=== PATIENT | male | born 1960 | race Caucasian/White ===

== ENCOUNTER 2017-01-13 13:17 | Emergency (ER) | payer SELFPAY ==
[~2017-01-13] VITALS: Ht 177.8 cm; Wt 120.0 kg
[2017-01-13 13:19] VITALS: BP 150/91; PULSE 64; RESP 20; TEMP 98; O2SAT 97
--- NOTE | 2017-01-13 15:19 | PD ---
HPI Chief Complaint: Medical Clearance Time Seen by Provider: 15:19 Travel History International Travel<30 days: No Contact w/Intl Traveler<30days: No Traveled to known affect area: No History of Present Illness HPI 56-year-old male with a history of sleep apnea presents to the emergency department for evaluation of feeling foggy with jaw pain. The patient states that since he woke up this morning he has been feeling "foggy." He describes it as feeling as though he just woke up. States that this is persisted throughout the day today. States that about an hour ago he also developed jaw pain that is aching in nature. He states he does have a mild headache as well. States that the last 2 days he has had a few episodes of nausea and vomiting but has had no nausea or vomiting today. He denies any chest pain, shortness of breath, difficulty breathing, numbness or tingling, weakness, vision changes , abdominal pain, fever, chills, cough or cold symptoms. He denies any history of high blood pressure, diabetes, heart disease or VT. States that he thinks he has high cholesterol but has never been diagnosed. He has been smoking cigarettes for 40+ years. Denies alcohol use. He does not have a PCP at this time. No other complaints. PFSH Past Medical History Blood Disorders: Yes (HAS ABNORMAL WBC,S / NEEDS TO SEE ONCOLOGIST) Depression: Yes High Cholesterol: Yes (SUPPOSED TO BE ON MEDICATION) Diminished Hearing: No Implanted Vascular Access Dvce: No Integumentary: Yes (HAS HAD BOILS IN THE PAST) Past Surgical History Abdominal Surgery: No Cardiac Surgery: No Ear Surgery: No Endocrine Surgery: No Eye Surgery: No Genitourinary Surgery: No Neurologic Surgery: No Oral Surgery: Yes (TONSILLECTOMY AT 12) Thoracic Surgery: No Tonsillectomy: Yes Other Surgery: Yes Social History Alcohol Use: No Tobacco Use: Yes (<1PPD) Substance Use: Yes ("WEED") Allergies-Medications (Allergen,Severity, Reaction): Coded Allergies: Ampicillin (Verified Allergy, Severe, HIVES AND SOB, 01/13/17) Penicillin (Verified Allergy, Mild, 01/13/17) Reported Meds & Prescriptions Reported Meds & Active Scripts Active No Active Prescriptions or Reported Medications Review of Systems Except as stated in HPI: all other systems reviewed are Neg Physical Exam Narrative GENERAL: Well-nourished and well-developed pleasant male patient in no acute distress who is nontoxic appearing. SKIN: Warm and dry. HEAD: Normocephalic and atraumatic. EYES: No injection, drainage, or hyphema noted. PERRLA. EOMI. ENT: No nasal drainage noted. Oropharynx is clear. NECK: Supple and the trachea is midline. CARDIOVASCULAR: Regular rate and rhythm. RESPIRATORY: Breath sounds are equal bilaterally with no accessory muscle use, wheezing, rhonchi, or crackles. GASTROINTESTINAL: Abdomen is soft, non-tender, and nondistended. MUSCULOSKELETAL: No obvious deformities, swelling, cyanosis, or ecchymosis is present throughout the upper and lower extremities. Patient has full range of motion without any signs of neurovascular compromise. Strength 5/5 upper and lower extremities and equal bilaterally. NEUROLOGICAL: Awake, alert, and oriented. Normal speech and gait. Normal finger to nose test. Normal [id number] test. Cranial nerves are grossly intact. Data Data Last Documented VS Vital Signs Date Time Temp Pulse Resp B/P Pulse Ox O2 Delivery O2 Flow Rate FiO2 01/13/17 15:02 52 16 01/13/17 13:19 98.0 150/91 97 Room Air Orders Electrocardiogram (01/13/17 13:36) Complete Blood Count With Diff (01/13/17 15:17) Comprehensive Metabolic Panel (01/13/17 15:17) Magnesium (Mg) (01/13/17 15:17) Ckmb (Isoenzyme) Profile (01/13/17 15:17) Troponin I (01/13/17 15:17) Act Partial Throm Time (Ptt) (01/13/17 15:17) Prothrombin Time / Inr (Pt) (01/13/17 15:17) Chest, Single Ap (01/13/17 15:17) Ct Brain W/O Iv Contrast(Rout) (01/13/17 15:17) Ecg Monitoring (01/13/17 15:17) Iv Access Insert/Monitor (01/13/17 15:17) Oximetry (01/13/17 15:17) Sodium Chloride 0.9% Flush (Ns Flush) (01/13/17 15:30) MDM Medical Decision Making Medical Screen Exam Complete: Yes Emergency Medical Condition: Yes Differential Diagnosis ACS versus anginal equivalent versus intracranial hemorrhage versus electrolyte abnormality versus other Narrative Course 56-year-old male presents to the emergency department for evaluation of " feeling foggy" with jaw pain, headache with nausea and vomiting yesterday. Patient is afebrile, vital signs are stable. Physical examination is essentially unremarkable. No focal neurologic deficits. IV access is obtained , labs were drawn and sent. Patient is placed on telemetry monitoring with pulse oximetry. EKG shows sinus rhythm with no acute ST elevations or depressions. Before any labs or imaging could be performed the patient states he would like to leave AMA. I discussed extensively with the patient that we need labs and more information but he refuses to stay. I discussed with him that he is at risk for heart attack, stroke, and . He verbalizes understanding and has medical decision making capacity. AMA: The risks of leaving against medical advice without further evaluation treatment were discussed with the patient. These risks include cardiac dysfunction, cardiac dysrhythmia, possible heart attack, possible stroke or . The patient indicated understanding of these risks and appeared to have the capacity to make this decision. Diagnosis Primary Impression: Left against medical advice Scripts No Active Prescriptions or Reported Meds Tania Solitario Jan 13, 2017 15:19
[2017-01-13] MEDS ORDERED: SODIUM CHLORIDE 0.9% FLUSH 5 ML FLUSH IVF PRN (15:30)
--- NOTE | 2017-01-14 10:22 | EKG ---
Date Performed: 01/13/2017 Time Performed: 13:45:32 PTAGE: 56 years EKG: Sinus rhythm NORMAL ECG PREVIOUS TRACING : 01/13/2017 13.44 DOCTOR: Dillan Alvarez Interpretating Date/Time 01/15/2017 06:59:37
== END 2017-01-13 15:37 | disposition left against medical advice (07) ==
LOC: NEPC 13:17
DX: Z53.21 Procedure and treatment not carried out due to patient leaving prior to being seen by health care provider (principal); R51 Headache; R11.2 Nausea with vomiting, unspecified; E78.00 Pure hypercholesterolemia, unspecified; F17.210 Nicotine dependence, cigarettes, uncomplicated; F12.90 Cannabis use, unspecified, uncomplicated
CPT/HCPCS: 93005